=== PATIENT | male | born 1930 | race Caucasian/White ===

== ENCOUNTER → 2016-12-01 | Outpatient (CLI) | payer OTHER, MEDICARE ==
[~2016-12-01] MED LIST: GADOBUTROL 10 ML VIAL IVP ONE
== END ==
LOC: FIMAGING 06:59
PROVIDERS: ATTEND Internal Medicine Endocrinology, Diabetes & Metabolism
DX: D44.3 Neoplasm of uncertain behavior of pituitary gland (principal); G31.9 Degenerative disease of nervous system, unspecified
CPT/HCPCS: 70553; A9585

== ENCOUNTER 2017-11-27 13:29 | Emergency (ER) | payer OTHER, MEDICARE ==
--- NOTE | 2017-11-27 14:05 | EDPHY ---
H & P Time Seen by Provider: 11/27/17 14:04 HPI/ROS: Chief complaint. Rapid heart rate HPI. 87-year-old male here with fast heart rate. Patient 3 days ago stopped his blood pressure medication in conjunction with his physician because he was having low blood pressure. He had all eyes had borderline high blood pressure. Because of that he is checking his blood pressure and heart rate daily. It was normal yesterday. This morning he noticed that the heart rate was elevated at approximately 1:40 a.m. And the monitor showed it was irregular. He had no symptoms with it. Took an aspirin prior to arrival. He has not had similar symptoms previously as far as he knows. He had a heart scan a year ago which showed some plaque but basically was okay. His heart rate was fast all the way to triage and then by the time we did the EKG and I saw the patient his heart rate is back to normal. He and his tell me they had a 46-year-old son who a year ago sudden climbing a 14 er of apparent SC. 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 ENT, Mouth: Mucous membranes are moist. Respiratory: There are no retractions, lungs are clear to auscultation. Cardiovascular: Regular rate and rhythm. Gastrointestinal: Abdomen is soft and nontender, no masses, bowel sounds normal. Neurological: Awake and alert, sensory and motor exams grossly normal. Skin: Warm and dry, no rashes. Musculoskeletal: Neck is supple nontender. Extremities symmetrical, full range of motion. Psychiatric: Patient is oriented X 3, there is no agitation. Constitutional: Initial Vital Signs Temperature (C) 36.7 C 11/27/17 13:31 Heart Rate 139 H 11/27/17 13:31 Respiratory Rate 18 11/27/17 13:31 Blood Pressure 130/86 H 11/27/17 13:31 O2 Sat (%) 95 11/27/17 13:31 O2 Delivery Mode Nasal Cannula O2 (L/minute) 2 Allergies/Adverse Reactions: No Known Allergies Allergy (Unverified 11/27/17 13:31) Home Medications: Medication Instructions Recorded Diltiazem Cd [Cardizem ER 120 MG 120 mg PO DAILY #10 cap 11/27/17 (*)] Zestoretic 20-25 mg Tablet 11/27/17 Medical Decision Making - Diagnostics EKG Interpretation: EKG interpreted by me shows normal sinus rhythm with normal interval. Left axis deviation. QRS is normal there is no significant ST elevation or depression. There is no arrhythmia. The rate is 69 Initial EKG shows likely atrial flutter. It is read as PSV T. Dr. Perdomo and I reviewed this together. On trace master and he feels that this is a typical flutter. Procedures: IV normal saline, monitor ED Course/Re-evaluation: Re-evaluation 3:00 p.m.. Patient is stable and without symptoms. Heart rate is 67 and normal sinus rhythm I consulted and discussed case with Dr. Perdomo who again feels that this is likely atypical flutter. He recommends low-dose Cardizem and aspirin daily. They will see the patient in the office in the next few days. I discussed this plan with the patient and his . They expressed understanding and agreement Differential Diagnosis: I considered atrial fibrillation, atrial flutter, PSVT - Data Points Laboratory Results: Laboratory Results 11/27/17 13:45 11/27/17 13:45 11/27/17 11/27/17 11/27/17 14:38 13:45 13:45 WBC 6.31 10^3/uL 10^3/uL (3.80-9.50) RBC 4.86 10^6/uL 10^6/uL (4.40-6.38) Hgb 15.3 g/dL g/dL (13.7-17.5) Hct 44.5 % % (40.0-51.0) MCV 91.6 fL fL (81.5-99.8) MCH 31.5 pg pg (27.9-34.1) MCHC 34.4 g/dL g/dL (32.4-36.7) RDW 13.2 % % (11.5-15.2) Plt Count 155 10^3/uL 10^3/uL (150-400) MPV 9.7 fL fL (8.7-11.7) Neut % (Auto) 63.3 % % (39.3-74.2) Lymph % (Auto) 25.4 % % (15.0-45.0) [place] % (Auto) 7.8 % % (4.5-13.0) Eos % (Auto) 2.4 % % (0.6-7.6) Baso % (Auto) 0.8 % % (0.3-1.7) Nucleat RBC Rel Count 0.0 % % (0.0-0.2) Absolute Neuts (auto) 4.00 10^3/uL 10^3/uL (1.70-6.50) Absolute Lymphs (auto) 1.60 10^3/uL 10^3/uL (1.00-3.00) Absolute Monos (auto) 0.49 10^3/uL 10^3/uL (0.30-0.80) Absolute Eos (auto) 0.15 10^3/uL 10^3/uL (0.03-0.40) Absolute Basos (auto) 0.05 10^3/uL 10^3/uL (0.02-0.10) Absolute Nucleated RBC 0.00 10^3/uL 10^3/uL (0-0.01) Immature Gran % 0.3 % % (0.0-1.1) Immature Gran # 0.02 10^3/uL 10^3/uL (0.00-0.10) Sodium 140 mEq/L mEq/L (135-145) Potassium 4.2 mEq/L mEq/L (3.3-5.0) Chloride 107 mEq/L mEq/L (97-110) Carbon Dioxide 23 mEq/l mEq/l (22-31) Anion Gap 10 mEq/L mEq/L (8-16) BUN 22 mg/dL mg/dL (7-23) Creatinine 0.9 mg/dL mg/dL (0.7-1.3) Estimated GFR > 60 Glucose 106 mg/dL H mg/dL (70-100) Calcium 8.9 mg/dL mg/dL (8.5-10.4) POC Troponin I 0.02 ng/mL ng/mL (0.00-0.08) Point of Care Test Results: Chemistry 11/27/17 14:38 POC Troponin I 0.02 ng/mL ng/mL (0.00-0.08) Departure - Departure Disposition: Home, Routine, Self-Care Clinical Impression: Atrial flutter Qualifiers: Atrial flutter type: unspecified Qualified Code(s): I48.92 - Unspecified atrial flutter Condition: Good Instructions: Atrial Flutter (ED) Additional Instructions: Take a 325 mg aspirin daily Cardizem 1 pill daily to prevent fast heart rate. Follow-up with Cardiology on Wednesday or Wednesday. I discussed your EKGs with Dr. Perdomo for Cardiology. Return for worsening symptoms Referrals: Mia Ernst MD [Primary Care Provider] - As per Instructions Santiago Perdomo MD [Medical Doctor] - 2-3 days without fail Prescriptions: Diltiazem Cd [Cardizem ER 120 MG (*)] 120 mg PO DAILY #10 cap
[2017-11-27 14:39] LABS: PLATELET COUNT 155 10^3/uL (150-400)
--- NOTE | 2017-11-27 15:00 | CPEKG ---
Test Reason : OPEN Blood Pressure : / mmHG Vent. Rate : 069 BPM Atrial Rate : 069 BPM P-R Int : 158 ms QRS Dur : 092 ms QT Int : 385 ms P-R-T Axes : 035 -26 037 degrees QTc Int : 413 ms Sinus rhythm Borderline left axis deviation Abnormal R-wave progression, early transition Confirmed by Elvis Barajas ([id number]) on 11/27/2017 2:59:58 PM Referred By: Confirmed By:Elvis Barajas
--- NOTE | 2017-11-27 15:10 | CPEKG ---
Test Reason : OPEN Blood Pressure : / mmHG Vent. Rate : 138 BPM Atrial Rate : 138 BPM P-R Int : 199 ms QRS Dur : 086 ms QT Int : 317 ms P-R-T Axes : 225 -72 042 degrees QTc Int : 481 ms Sinus or ectopic atrial tachycardia Ventricular premature complex LAD, consider left anterior fascicular block ST depression, probably rate related Borderline prolonged QT interval Confirmed by Joe Rene ([id number]) on 11/27/2017 3:09:18 PM Referred By: Confirmed By:Joe Rene
[2017-11-27 15:29] VITALS: BP 117/62
--- NOTE | 2017-12-02 14:49 | ASMTCMCOM ---
CM Note CM Note Notes: Pt. called [facility] stated that he was unable to schedule an follow up visit with Dr. Perdomo after his ED visit on 11/27. He was concerned that he would run out of the prescribed medication and experience symptoms again. This SW called Dr. Perdomo's office, the nurse stated that she would call him today to refill the prescription and schedule the follow up appointment. Date Signed: 12/02/2017 02:48 PM Electronically Signed By:Kelvin Emerson LCSW
== END 2017-11-27 15:29 | disposition home or self-care (01) ==
DX: I48.92 Unspecified atrial flutter (principal); I10 Essential (primary) hypertension; E21.3 Hyperparathyroidism, unspecified; D35.2 Benign neoplasm of pituitary gland
CPT/HCPCS: 84484-PO

== ENCOUNTER → 2017-12-27 | Outpatient (CLI) | payer OTHER, MEDICARE | LOC: BHFA 08:30 | PROVIDERS: ATTEND Internal Medicine Cardiovascular Disease | DX: I48.92 Unspecified atrial flutter (principal) | CPT/HCPCS: 78452; 93017; A9500 ==

== ENCOUNTER → 2018-01-04 | Outpatient (CLI) | payer OTHER, MEDICARE | LOC: BHFA 08:30 | PROVIDERS: ATTEND Internal Medicine Cardiovascular Disease | DX: I48.92 Unspecified atrial flutter (principal) ==

== ENCOUNTER 2018-01-06 04:02 | Emergency (ER) | payer OTHER, MEDICARE ==
[2018-01-06] MEDS ORDERED: NS 1,000 ML IV ONE (04:20)
--- NOTE | 2018-01-06 04:23 | EDPHY ---
H & P Stated Complaint: AWOKE FROM DREAM WITH FLUTTERING HR, 129-144, 141/101, ON HOLTER MON Time Seen by Provider: 01/06/18 04:23 HPI/ROS: HPI CHIEF COMPLAINT: Palpitations,fast heart rate. HISTORY OF PRESENT ILLNESS: 87-year-old male, presents emergency room with palpitations fast heart rate. Patient was recently seen here in November for palpitations fast heart rate and self converted in the ER was referred to Cardiology for cardiac arrhythmia evaluation. He saw Dr. Parada. He was placed on external zmt operator. He is due to follow up in January. This evening he states that he was sleeping he woke up for dream where he was running. He thought he was just dreaming however realized that his pulse was very fast. Is in the 130s. He took at home captured it in the 130s. He is unsure if it was a regular. He denies any chest pain or shortness of breath. He arrived to the emergency room at triage is noted his heart rate is in the 130s. However after being brought back to room 17 he self converted again. Current heart rate is in the 70s. Upon my evaluation he has no complaints he denies any chest pain or shortness of breath. Denies lightheadedness. Denies feeling palpitations. Past Medical History: Patient has a history of hypertension, hyperparathyroidism, pituitary adenoma, autoimmune meningitis Past Surgical History: No recent surgical history Social History: Denies drugs alcohol tobacco. Family History: Noncontributory ROS REVIEW OF SYSTEMS: 10 Systems were reviewed and negative with the exception of the elements mentioned in the history of present illness. Exam Constitutional elderly nontoxic, triage nursing summary reviewed, vital signs reviewed, awake/alert. Eyes normal conjunctivae and sclera, EOMI, PERRLA. HENT normal inspection, atraumatic, moist mucus membranes, no epistaxis, neck supple/ no meningismus, no raccoon eyes. Respiratory clear to auscultation bilaterally, normal breath sounds, no respiratory distress, no wheezing. Cardiovascular rate normal, regular rhythm, no murmur, no edema, distal pulses normal. Gastrointestinal soft, non-tender, no rebound, no guarding, normal bowel sounds, no distension, no pulsatile mass. Genitourinary no CVA tenderness. Musculoskeletal no midline vertebral tenderness, full range of motion, no calf swelling, no tenderness of extremities, no meningismus, good pulses, neurovascularly intact. Skin pink, warm, & dry, no rash, skin atraumatic. Neurologic awake, alert and oriented x 3, AAOx3, moves all 4 extremities equally, motor intact, sensory intact, CN II-XII intact, normal cerebellar, normal vision, normal speech. Psychiatric normal mood/affect. Heme/Lymph/Immune no lymphadenopathy. Differential diagnosis includes but is not limited to: ACS, atypical chest pain , pneumothorax, pneumonia, pulmonary embolism, aortic dissection, congestive heart failure, tumor, musculoskeletal pain, esophageal pain, GERD, peptic ulcer disease, pancreatitis Medical Decision Making: Plan for this patient IV establishment full zmt operator, EKG, electrolytes, troponin. Chest x-ray. Re-evaluation: EKG interpretation by me on record in [facility] system. Impression time of EKG 4:24 a.m., sinus rhythm rate of 76 no signs of acute ischemia no signs of cardiac arrhythmia. The patient's initial heart rate was in the 130s at triage. However being brought back into ER room 17 he is heart rate is now in the 70s. It seems that he converted out of on his own what other tachy dysrhythmia he was in. ED x-ray chest one view negative for acute cardiopulmonary disease. Image interpreted by myself. [id number]: I spoke with Dr. Chow, discussed case in detail. Feels comfortable allowing the patient go home. He believes this could possibly be AFib versus a flutter. He did review the EKG from November 27. Were unable to capture tachy dysrhythmia here in the emergency room this time. The patient is currently resting comfortably without any chest pain shortness of breath. His vital signs are stable. Current vital signs at this time heart rate 52, blood pressure 141/104, 96% on room air, no chest pain or shortness of breath. Patient's electrolytes and troponin negative. Patient's chest x-ray unremarkable. He does recommend the patient following up with him. He did review his records from [facility] through [facility]. Make sure the patient is on Eliquis. Return precautions discussed the patient he understands. Patient like to go home. Denies chest pain or shortness of breath. Patient is on Eliquis Source: Patient - Personal History Current Tetanus/Diphtheria Vaccine: Yes Tetanus Vaccine Date: < 10 years - Medical/Surgical History Hx Asthma: No Hx Chronic Respiratory Disease: No Hx Diabetes: No Hx Cardiac Disease: Yes Hx Renal Disease: No Hx Cirrhosis: No Hx Alcoholism: No Hx HIV/AIDS: No Hx Splenectomy or Spleen Trauma: No Other PMH: HTN, TONSIL, APPY, ROTATOR CUFF, RIGHT KNEE, PARATHYROIDECTOMY, AUOIMMUNE: NIAM ENCEPHALITIS, AFLUTTER - Social History Smoking Status: Never smoked Constitutional: Initial Vital Signs Heart Rate 129 H 01/06/18 04:11 Respiratory Rate 18 01/06/18 04:11 Blood Pressure 124/99 H 01/06/18 04:11 O2 Sat (%) 96 01/06/18 04:11 O2 Delivery Mode Room Air Allergies/Adverse Reactions: No Known Allergies Allergy (Unverified 01/06/18 04:08) Home Medications: Medication Instructions Recorded Zestoretic 20-25 mg Tablet 11/27/17 Calcium 01/06/18 Eliquis 01/06/18 Fish Oil 1000 mg (*) 01/06/18 GINKGO BILOBA 01/06/18 Glucosamine 01/06/18 Magnesium 01/06/18 Multivitamins 01/06/18 Vitamin D3 01/06/18 Medical Decision Making - Data Points Laboratory Results: Laboratory Results 01/06/18 04:30 01/06/18 04:30 01/06/18 01/06/18 01/06/18 04:37 04:30 04:30 WBC RBC Hgb Hct MCV MCH MCHC RDW Plt Count MPV Neut % (Auto) Lymph % (Auto) [place] % (Auto) Eos % (Auto) Baso % (Auto) Nucleat RBC Rel Count Absolute Neuts (auto) Absolute Lymphs (auto) Absolute Monos (auto) Absolute Eos (auto) Absolute Basos (auto) Absolute Nucleated RBC Immature Gran % Immature Gran # PT 14.2 SEC SEC (12.0-15.0) INR 1.08 (0.83-1.16) APTT 31.6 SEC SEC (23.0-38.0) Sodium 139 mEq/L mEq/L (135-145) Potassium 3.8 mEq/L mEq/L (3.3-5.0) Chloride 102 mEq/L mEq/L (97-110) Carbon Dioxide 27 mEq/l mEq/l (22-31) Anion Gap 10 mEq/L mEq/L (6-14) BUN 20 mg/dL mg/dL (7-23) Creatinine 0.8 mg/dL mg/dL (0.7-1.3) Estimated GFR > 60 Glucose 99 mg/dL mg/dL (70-100) Calcium 9.6 mg/dL mg/dL (8.5-10.4) Magnesium 1.9 mg/dL mg/dL (1.6-2.3) Total Bilirubin 0.5 mg/dL mg/dL (0.1-1.4) Conjugated Bilirubin 0.1 mg/dL mg/dL (0.0-0.5) Unconjugated Bilirubin 0.4 mg/dL mg/dL (0.0-1.1) AST 34 IU/L IU/L (17-59) ALT 45 IU/L IU/L (21-72) Alkaline Phosphatase 90 IU/L IU/L (38-126) POC Troponin I 0.01 ng/mL ng/mL (0.00-0.08) NT-Pro-B Natriuret Pep 189 pg/mL pg/mL (0-450) Total Protein 6.5 g/dL g/dL (6.3-8.2) Albumin 4.0 g/dL g/dL (3.5-5.0) Lipase 177 IU/L IU/L (23-300) 01/06/18 04:30 WBC 5.15 10^3/uL 10^3/uL (3.80-9.50) RBC 4.99 10^6/uL 10^6/uL (4.40-6.38) Hgb 15.6 g/dL g/dL (13.7-17.5) Hct 45.8 % % (40.0-51.0) MCV 91.8 fL fL (81.5-99.8) MCH 31.3 pg pg (27.9-34.1) MCHC 34.1 g/dL g/dL (32.4-36.7) RDW 13.0 % % (11.5-15.2) Plt Count 175 10^3/uL 10^3/uL (150-400) MPV 9.2 fL fL (8.7-11.7) Neut % (Auto) 50.3 % % (39.3-74.2) Lymph % (Auto) 32.8 % % (15.0-45.0) [place] % (Auto) 10.9 % % (4.5-13.0) Eos % (Auto) 5.0 % % (0.6-7.6) Baso % (Auto) 0.8 % % (0.3-1.7) Nucleat RBC Rel Count 0.0 % % (0.0-0.2) Absolute Neuts (auto) 2.59 10^3/uL 10^3/uL (1.70-6.50) Absolute Lymphs (auto) 1.69 10^3/uL 10^3/uL (1.00-3.00) Absolute Monos (auto) 0.56 10^3/uL 10^3/uL (0.30-0.80) Absolute Eos (auto) 0.26 10^3/uL 10^3/uL (0.03-0.40) Absolute Basos (auto) 0.04 10^3/uL 10^3/uL (0.02-0.10) Absolute Nucleated RBC 0.00 10^3/uL 10^3/uL (0-0.01) Immature Gran % 0.2 % % (0.0-1.1) Immature Gran # 0.01 10^3/uL 10^3/uL (0.00-0.10) PT INR APTT Sodium Potassium Chloride Carbon Dioxide Anion Gap BUN Creatinine Estimated GFR Glucose Calcium Magnesium Total Bilirubin Conjugated Bilirubin Unconjugated Bilirubin AST ALT Alkaline Phosphatase POC Troponin I NT-Pro-B Natriuret Pep Total Protein Albumin Lipase Medications Given: Discontinued Medications Sodium Chloride (Ns) 1,000 mls @ 0 mls/hr IV EDNOW ONE; Wide Open PRN Reason: Protocol Stop: 01/06/18 04:21 Last Admin: 01/06/18 04:31 Dose: 1,000 mls Point of Care Test Results: Chemistry 01/06/18 04:37 POC Troponin I 0.01 ng/mL ng/mL (0.00-0.08) Departure - Departure Disposition: Home, Routine, Self-Care Clinical Impression: Tachycardia, Heart palpitations Condition: Good Instructions: Tachycardia (ED) Additional Instructions: 1. Return emergency room if develops worsening symptoms 2. Please follow up with Dr. Wright. Referrals: Richard Navarro MD [Primary Care Provider] - As per Instructions Ajit Wright MD [Medical Doctor] - As per Instructions
[2018-01-06 04:43] LABS: PLATELET COUNT 175 10^3/uL (150-400)
[2018-01-06 04:51] LABS: INR 1.08 (0.83-1.16); PROTIME(PATIENT) 14.2 SEC (12.0-15.0)
[2018-01-06 07:01] VITALS: BP 123/77
--- NOTE | 2018-01-06 07:10 | CPEKG ---
Test Reason : OPEN Blood Pressure : / mmHG Vent. Rate : 076 BPM Atrial Rate : 075 BPM P-R Int : 170 ms QRS Dur : 095 ms QT Int : 381 ms P-R-T Axes : 047 -06 053 degrees QTc Int : 429 ms Sinus rhythm Confirmed by Kishan Parkinson ([id number]) on 01/06/2018 7:09:27 AM Also confirmed by Kishan Parkinson ([id number]) on 01/06/2018 7:09:35 AM Referred By: Confirmed By:Kishan Parkinson
== END 2018-01-06 07:01 | disposition home or self-care (01) ==
DX: R00.0 Tachycardia, unspecified (principal); R00.2 Palpitations; E86.9 Volume depletion, unspecified; I48.92 Unspecified atrial flutter; I10 Essential (primary) hypertension; E21.3 Hyperparathyroidism, unspecified; Z79.01 Long term (current) use of anticoagulants
CPT/HCPCS: 84484-PO

== ENCOUNTER → 2018-09-12 | Outpatient (CLI) | payer OTHER, MEDICARE | LOC: CIMAGING 12:34 ==